=== PATIENT | female | born 1995 | race Caucasian/White ===

== ENCOUNTER 2017-02-06 20:31 | Emergency (ER) | payer OTHER ==
[~2017-02-06] VITALS: Ht 154.9 cm; Wt 69.4 kg
[2017-02-06] MEDS ORDERED: MOTRIN600 MG PO (22:18)
[2017-02-06] MEDS ORDERED: KEFLEX500 MG PO (22:18)
[2017-02-06 22:44] VITALS: BP 125/78
== END 2017-02-06 22:44 | disposition home or self-care (01) ==
LOC: EME 20:31
PROC: 0U9L0ZZ Drainage of Vestibular Gland, Open Approach (ICD-10-PCS; principal; 2017-02-06)
DX: N75.0 Cyst of Bartholin's gland (principal); N75.1 Abscess of Bartholin's gland; F17.200 Nicotine dependence, unspecified, uncomplicated
CPT/HCPCS: 87205; 99281; 99284; J3010